=== PATIENT | female | born 1990 | race Caucasian/White ===

== ENCOUNTER 2023-02-10 16:16 | Emergency (ER) | payer SELFPAY ==
[2023-02-10] MEDS ORDERED: Sodium Chloride 0.9% 10 ML Syringe FLUSH PRN (16:34)
[2023-02-10 16:40] LABS: BASOPHILS PERCENT AUTO 0.9 % (0.0-1.0); EOSINOPHILS ABSOLUTE AUTO 0.1 K/mm3 (0.0-0.4); EOSINOPHILS PERCENT AUTO 2.1 % (0.0-6.0); HEMATOCRIT 37.8 % (37.0-47.0); HEMOGLOBIN 13.9 gm/dl (12.0-16.0); IMMATURE GRAN ABSOLUTE AUTO 0.01 K/mm3 (0.00-0.05); IMMATURE GRAN PERCENT AUTO 0.2 % (0.0-0.4); LYMPHOCYTES ABSOLUTE AUTO 1.3 K/mm3 (1.0-4.8); LYMPHOCYTES PERCENT AUTO 27.9 % (24.0-44.0); MEAN CORPUSCULAR HEMOGLOBIN 32.7 pg (28.0-32.0); MEAN CORPUSCULAR HGB CONC 36.8 g/dl (32.0-36.0); MEAN CORPUSCULAR VOLUME 88.9 fl (83.0-99.0); MEAN PLATELET VOLUME 9.3 fl (9.4-12.3); MONOCYTES ABSOLUTE AUTO 0.4 K/mm3 (0.0-0.8); MONOCYTES PERCENT AUTO 7.9 % (0.0-8.0); NEUTROPHILS ABSOLUTE AUTO 2.9 K/mm3 (1.8-7.7); PLATELET COUNT,PLT 222 K/mm3 (150-400); RED BLOOD CELL COUNT 4.25 M/mm3 (4.10-5.30); WHITE BLOOD CELL COUNT,WBC 4.69 K/mm3 (3.9-11.3)
[2023-02-10] MEDS ORDERED: LORazepam 2 MG/ML SDV IVPUSH ONE (16:50)
[2023-02-10 17:02] LABS: INR 1.02; PROTHROMBIN TIME 10.9 SECONDS (9.7-12.0)
[2023-02-10 17:03] LABS: D-DIMER QUANTITATIVE 0.32 mg/L (0.19-0.50)
[2023-02-10 17:07] LABS: A/G RATIO 1.2 (1-2); ALBUMIN 4.4 g/dl (3.4-5.0); BILIRUBIN TOTAL 1.1 mg/dL (0.2-1.0); CALCIUM 9.3 mg/dL (8.5-10.1); MAGNESIUM 1.5 mg/dL (1.8-2.4); PROTEIN TOTAL,TP 8.1 g/dl (6.4-8.2)
== END 2023-02-10 17:35 | disposition home or self-care (01) ==
LOC: JD.ED 16:16
DX: F41.9 Anxiety disorder, unspecified (principal); F17.210 Nicotine dependence, cigarettes, uncomplicated
CPT/HCPCS: 36415; 80053; 83735; 84484; 85025; 85379; 85610; 85730; 93005; 96374; 99285; J2060; J3490; 93010; 99284

== ENCOUNTER 2024-03-14 19:07 | Emergency (ER) | payer SELFPAY ==
[2024-03-14] MEDS ORDERED: Sodium Chloride 0.9% 10 ML Syringe FLUSH PRN (20:08)
[2024-03-14] MEDS: Lidocaine 1% 10 ML MDV INJECT ONE (20:55)
[2024-03-14] MEDS: Diphtheria,Pertussis(Acell),Tetanus Vaccine 0.5 ML Syringe IM ONE (20:59)
[2024-03-14] MEDS: ceFAZolin 1 GM in Sodium Chloride 0.9% 50 ML IV ONE (20:59)
[2024-03-14] MEDS: Morphine 2 MG/ML SYRINGE IVPUSH ONE (21:07)
[2024-03-14] MEDS: Sodium Chloride 0.9% 100 ML ONE (21:08)
[2024-03-14] MEDS: Lidocaine 1% 10 ML MDV ONE (21:08)
== END 2024-03-14 23:02 | disposition home or self-care (01) ==
LOC: JD.ED 19:07
DX: S81.011A Laceration without foreign body, right knee, initial encounter (principal); Z23 Encounter for immunization; W10.9XXA Fall (on) (from) unspecified stairs and steps, initial encounter
CPT/HCPCS: 12002; 90471; 90715; 96365; 96375; 99282; J0690; J2270; J3490; 99283